=== PATIENT | male | born 1975 | race African-American/Black ===

== ENCOUNTER 2018-06-12 20:01 | Emergency (ER) | payer OTHER ==
[~2018-06-12] VITALS: Ht 172.7 cm; Wt 95.5 kg
[2018-06-12 22:56] VITALS: BP 133/79
== END 2018-06-12 23:10 | disposition home or self-care (01) ==
LOC: EMS 20:02
DX: R20.2 Paresthesia of skin (principal); F17.210 Nicotine dependence, cigarettes, uncomplicated
CPT/HCPCS: 72072; 93005; 99284; 99406